=== PATIENT | female | born 1990 | race Caucasian/White ===

== ENCOUNTER 2016-11-17 17:12 | Emergency (ER) | payer OTHER ==
[2016-11-17 17:30] VITALS: BP 99/74
--- NOTE | 2016-11-17 17:45 | ED Physician Documentation ---
PD HPI ANIMAL BITE - Stated complaint Stated Complaint: LT ARM LAC - Chief complaint Chief Complaint: Wound - History obtained from History obtained from: Patient, Family - History of Present Illness Location of injury(ies): LUE Details of the event: Dog, Bite, Immunization unknown, Provoked (walked past animals domain) Timing - onset: Today Timing - duration: Minutes Timing - details: Abrupt onset, Still present Improved by: Rest, Immobilization Worsened by: Moving, Palpating Associated symptoms: No: Weakness, Numbness, Tingling, Swelling Contributing factors: No: Immunocompromised Similar symptoms before: Has not had sx before Recently seen: Not recently seen - Additional information Additional information: 26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 She has deep puncture wounds to the left forearm she has some pain with flexion extension of her wrist and fingers and with movement of her arm in general. Review of Systems Constitutional: denies: Fever, Chills Respiratory: denies: Cough GI: denies: Vomiting : denies: Dysuria Skin: reports: Laceration (s), Bite / sting. denies: Rash Musculoskeletal: reports: Extremity pain. denies: Neck pain, Back pain PD PAST MEDICAL HISTORY - Past Medical History Past Medical History: No - Past Surgical History Past Surgical History: No - Present Medications Home Medications: Ambulatory Orders Medication Instructions Recorded Confirmed Amox/Clav 875/125 [Augmentin] 1 each PO Q12H #10 tablet 11/17/16 HYDROcod/ACETAM 5/325 [Lyons 5/325] 1 - 2 ea PO Q6H PRN #15 tablet 11/17/16 - Allergies Allergies/Adverse Reactions: Allergies Allergy/AdvReac Type Severity Reaction Status Date / Time No Known Drug Allergies Allergy Verified 11/17/16 17:29 - Social History Does the pt smoke?: No Smoking Status: Never smoker - Immunizations Immunizations are current?: Yes PD ED PE NORMAL - Vitals Vital signs reviewed: Yes (normal ) - General General: No acute distress, Well developed/nourished - HEENT HEENT: Atraumatic, PERRL - Respiratory Respiratory: No respiratory distress - Derm Derm: Normal color, Warm and dry, No rash - Extremities Extremities: No deformity, No edema, Other (There are 4 puncute wound lacerations consistent with a bite from a large dog over the volar and dorsal surfaces of the left forearm about mid forearm. Distal n/v is intact. 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 These are left open and they are cleaned with saline and the patient will be put on some antibiotic prophylaxis. She is up-to -date on her tetanus. Animal control will be notified. Departure - Departure Disposition: Home, Self Care Clinical Impression: Animal bite with open wound Condition: Stable Instructions: ED Bite Animal General Follow-Up: GUILLERMO Gallagher [Provider Group] Prescriptions: Amox/Clav 875/125 [Augmentin] 1 each PO Q12H #10 tablet HYDROcod/ACETAM 5/325 [Lyons 5/325] 1 - 2 ea PO Q6H PRN #15 tablet PRN Reason: Pain
[2016-11-17] MEDS ORDERED: BACITRACIN OINT TOP ONE (18:05)
[2016-11-17] MEDS: HYDROcod/ACETAM 5/325 MG TABLET PO STA (18:13)
[2016-11-17] MEDS ORDERED: HYDROcod/ACETAM 5/325 MG TABLET ONE (18:16)
== END 2016-11-17 18:15 | disposition home or self-care (01) ==
LOC: ED 17:12
DX: S51.852A Open bite of left forearm, initial encounter (principal); W54.0XXA Bitten by dog, initial encounter; Y93.01 Activity, walking, marching and hiking
CPT/HCPCS: 99283

== ENCOUNTER 2018-05-26 08:28 | Outpatient (CLI) | payer OTHER ==
[2018-05-26] MEDS ORDERED: GADOBUTROL 10 MMOL/10 ML VIAL ONE (10:02)
[2018-05-26] MEDS ORDERED: GADOBUTROL 10 MMOL/10 ML VIAL IVP ONE (10:31)
--- NOTE | 2018-05-26 15:49 | MRI Report ---
Reason: UNSPECIFIED INJURY OF LEFT FOREARM,INITIAL ENCOUNT Procedure Date: 05/26/2018 Accession Number: [id number] / [id number] Procedure: MRI - Forearm LT W/WO CPT Code: FULL RESULT: EXAM: LEFT FOREARM MRI WITHOUT AND WITH CONTRAST EXAM DATE: 05/26/2018 10:45 AM. CLINICAL HISTORY: Left forearm injury COMPARISON: None. TECHNIQUE: Multiplanar, multisequence T1-weighted and fluid-sensitive sequences of the forearm before and after administration of intravenous contrast. IV contrast: 9 mL Gadavist. Other: None. FINDINGS: Bones: No fractures or subluxations. No marrow edema or abnormal enhancement. No bone lesions. Joint Spaces: Visualized portions of the wrist and elbow joints are unremarkable. Ligaments: The interosseous membrane is intact. Tendons: Where visualized, the proximal wrist tendons are intact Musculature: No edema or fatty atrophy. Other: The subcutaneous tissues are unremarkable. No abscess or cellulitis. IMPRESSION: No MRI abnormalities in the forearm. RADIA MUSCULOSKELETAL RADIOLOGY SECTION
== END 2018-05-26 08:29 | disposition home or self-care (01) ==
LOC: DI 08:28
PROVIDERS: ATTEND Family Medicine
DX: S59.912A Unspecified injury of left forearm, initial encounter (principal); R53.1 Weakness; R25.1 Tremor, unspecified
CPT/HCPCS: 73220; A9585